=== PATIENT | male | born 1945 | race African-American/Black ===

== ENCOUNTER 2025-04-13 02:54 | Emergency (ER) | payer OTHER ==
[~2025-04-13] VITALS: Ht 175.3 cm; Wt 80.0 kg
[2025-04-13 02:56] VITALS: O2SAT 99
[2025-04-13] MEDS: KETOROLAC 30MG/ML VIAL IV STA (03:53)
[2025-04-13] MEDS: ONDANSETRON HCL 4MG/2ML INJ IV STA (03:55)
[2025-04-13 04:02] LABS: BASOPHILS % 1.1 % (0.0-2.0); DIFFERENTIAL COMMENT 0; EOSINOPHILS % 2.7 % (0.0-5.0); HEMATOCRIT. 39.8 % (42.0-52.0); HEMOGLOBIN. 13.1 g/dL (14.0-18.0); LYMPHOCYTES % 40.6 % (20.0-50.0); MEAN CORPUSCULAR HEMOGLOBIN 28.1 pg (28.0-32.0); MEAN CORPUSCULAR HGB CONC 32.9 g/dL (31.0-37.0); MEAN CORPUSCULAR VOLUME 85.2 fL (80.0-94.0); MEAN PLATELET VOLUME 7.9 fl (7.4-10.4); MONOCYTES % 8.2 % (2.0-8.0); NEUTROPHILS % 47.4 % (40.0-76.0); PLATELET 240 x1000/uL (130-400); RED BLOOD CELL COUNT 4.67 mill/uL (4.7-6.1); WHITE BLOOD COUNT 4.1 x1000/uL (4.5-11.0)
[2025-04-13 04:09] LABS: CHLORIDE 107 mEq/L (98-107); POTASSIUM 3.6 mEq/L (3.5-5.1); SODIUM 142 mEq/L (136-145)
[2025-04-13 04:11] LABS: CALCIUM 9.3 mg/dL (8.7-10.4); CARBON DIOXIDE 26 mEq/L (21-32)
[2025-04-13 04:16] LABS: CREATININE 1.3 mg/dL (0.6-1.3); GLUCOSE 108 mg/dL (70-105)
[2025-04-13 04:17] LABS: UREA NITROGEN BLOOD 18 mg/dL (9-23)
[2025-04-13 04:18] LABS: ALANINE AMINOTRANSFERASE 21 IU/L (10-49); ALBUMIN 4.3 g/dL (3.2-4.8); ASPARTATE AMINOTRANSFERASE 23 IU/L (<34)
[2025-04-13 04:19] LABS: BILIRUBIN DIRECT 0.1 mg/dL (<=3.0); BILIRUBIN TOTAL 0.5 mg/dL (0.1-1.0); PROTEIN TOTAL 7.2 g/dL (6.0-8.3)
[2025-04-13] MEDS: ONDANSETRON HCL 4MG/2ML INJ IV ONE (05:53)
[2025-04-13] MEDS: MORPHINE SULFATE 4 MG/ML INJ (FOR IV/IM USE) IV ONE (05:59)
[2025-04-13 07:21] VITALS: BP 142/82; PULSE 59; RESP 11; TEMP 37; O2SAT 100
== END 2025-04-13 07:58 | disposition short-term general hospital (02) ==
LOC: ER 02:54
DX: M54.50 Low back pain, unspecified (principal); I10 Essential (primary) hypertension
CPT/HCPCS: 99285; 74176; 96374; 96375; 71045; 80076; 80048; 83605; 83690; 85025; 36415; 96376; J1885; J2405; J2270